=== PATIENT | male | born 1975 | race Hispanic/Latino ===

== ENCOUNTER 2021-08-26 18:33 | Emergency (ER) | payer SELFPAY ==
[2021-08-26 18:45] VITALS: BP 122/107; PULSE 111; RESP 20; TEMP 37.3; O2SAT 100
--- NOTE | 2021-08-26 18:45 | ED.LOWEXIN ---
HPI - Extremity Injury (Lower) General Chief Complaint: Skin/Abscess/Foreign Body Stated Complaint: swollen right ankle Time Seen by Provider: 08/26/21 18:45 Source: patient Mode of arrival: ambulatory Limitations: no limitations History of Present Illness HPI Narrative: 46-year-old primarily Indonesian speaking male presented for complaint of right ankle redness and swelling x5 days. Denies injury or insect bite. States it started as a small red bump but redness and swelling has increased. Denies pain or fever. Denies drainage. Hx diabetes, does not check BS or take medication at this time as he has not f/u with pcp in years. Denies any other locations of skin wounds. Pt requested his son interpret. Related Data Home Medications Medication Instructions Recorded Confirmed No Home Medications 08/26/21 08/26/21 Allergies Allergy/AdvReac Type Severity Reaction Status Date / Time No Known Allergies Allergy Verified 08/26/21 18:51 Review of Systems Review of Systems: CONSTITUTIONAL: Denies body aches, fever, chills, or sweats. EYES: Denies visual changes, redness, or discharge. ENT: Denies rhinorrhea, congestion, sore throat, or otalgia. CARDIOVASCULAR: Denies chest pain, palpitations, or edema. RESPIRATORY: Denies cough or dyspnea. GASTROINTESTINAL: Denies abdominal pain, nausea, vomiting, or diarrhea. GENITOURINARY: Denies dysuria or hematuria. SKIN: redness and swelling right ankle MUSCULOSKELETAL: Denies back pain, joint pain, or myalgia. NEUROLOGIC: Denies headache, numbness, tingling, or weakness. PSYCH: Denies depression or anxiety. PMFSH Comments At time of signature, I have reviewed and agree with nursing past medical, surgical, social and family history unless otherwise noted. Please see nursing chart for further information. There is no relevant family history pertinent to the presenting complaint Exam Narrative: GENERAL: Well-appearing HEAD: Normocephalic, atraumatic. EYES: conjunctivae clear, and EOMI. ENT: Mucous membranes moist. NECK: Supple. CHEST: Clear to auscultation. No respiratory distress. HEART: Regular rate and rhythm. SKIN: Warm, dry. Moderate right foot and ankle edema. Approx 4cm diameter erythematous indurated area with approx 3mm diameter white/clear firm center anterior surface of ankle, no fluctuance or active drainage, erythema is not circumferential, area is nontender with palpation, full ROM to RLE. PPP. NEURO: Alert and oriented x3. PSYCH: Normal mood and affect Course Course Emergency Course: Patient is aware of diagnosis, understands and agrees to treatment plan. Anticipatory guidance given. Patient agrees to follow-up as directed and is aware of reasons to seek care at the emergency department. Portions of this record may have been created with voice recognition software Level of Care: Express Care Visit Vital Signs Vital signs: Reviewed MDM - Extremity Injury (Lower) MDM Narrative Medical decision making narrative: Does not appear at this time to be erythema multiforme, bullous, SJS, TEN; no evidence at this time to suggest RMSF, endocarditis or Lyme disease; patient looks well, nontoxic, no neurologic signs or symptoms; afebrile; appropriate for initial outpatient treatment; discussed the importance of follow-up, especially given uncontrolled diabetes. patient agrees. We discussed abx and steroid, along with wound care and monitoring. He is aware of s/s to go to the ER immediately including but not limited to: worsening appearance of wound, fever, pain, headache, dizziness, chest pain, trouble breathing, or any symptoms concerning to the patient. Differential Diagnosis Differential diagnosis: Likely other (viral exanthema, contact dermatitis, allergic dermatitis, eczema, urticaria, gout, cellulitis) Discharge Plan Discharge Clinical Impression: Cellulitis Qualifiers: Site of cellulitis: extremity Site of cellulitis of extremity: lower extremity Laterality: right
== END 2021-08-26 19:04 | disposition home or self-care (01) ==
PROVIDERS: Emergency Provider Nurse Practitioner Family
DX: L03.115 Cellulitis of right lower limb (principal)
CPT/HCPCS: 99203; G0463